=== PATIENT | female | born 1955 | race Caucasian/White ===

== ENCOUNTER → 2020-06-05 13:16 | Outpatient (BNVA) | payer OTHER, SELFPAY | PROVIDERS: Family Provider Nurse Practitioner Family; PCP Nurse Practitioner Family; Visit Provider Nurse Practitioner Family | DX: E55.9 Vitamin D deficiency, unspecified (principal); E78.5 Hyperlipidemia, unspecified; R73.9 Hyperglycemia, unspecified; Z12.31 Encounter for screening mammogram for malignant neoplasm of breast | CPT/HCPCS: 80053; 80061; 82306; 83036; 85025 ==

== ENCOUNTER 2020-06-11 07:24 | Outpatient (CLI) | payer OTHER, SELFPAY ==
--- NOTE | 2020-06-11 07:30 | MM_ITS ---
WS: [id number] BILATERAL DIGITAL SCREENING MAMMOGRAPHY WITH CAD CLINICAL INFORMATION: screening mammo HISTORY: Screening mammogram. No current complaints. COMPARISON: [id number] TECHNIQUE: Bilateral CC and MLO views. FINDINGS: The breasts are composed of heterogeneous fibroglandular density tissue, which can limit the detectio n of small underlying mass lesions. No suspicious mass, asymmetry, calcifications, or architectural d istortion. No evidence of malignancy. MM/[place] [id number] IMPRESSION: BI-RADS: 1-Negative FOLLOW UP: 1 Year Follow-up Recommend return to annual screening mammography.
== END 2020-06-11 07:25 | disposition home or self-care (01) ==
PROVIDERS: PCP Nurse Practitioner Family; Visit Provider Nurse Practitioner Family
DX: Z12.31 Encounter for screening mammogram for malignant neoplasm of breast (principal)
CPT/HCPCS: 77067

== ENCOUNTER → 2020-06-27 13:24 | Outpatient (BNVA) | payer OTHER, SELFPAY | PROVIDERS: PCP Nurse Practitioner Family; Visit Provider Nurse Practitioner Family | DX: R26.81 Unsteadiness on feet (principal); E55.9 Vitamin D deficiency, unspecified; I10 Essential (primary) hypertension; R73.9 Hyperglycemia, unspecified; F41.9 Anxiety disorder, unspecified; F32.9 Major depressive disorder, single episode, unspecified; E78.5 Hyperlipidemia, unspecified | CPT/HCPCS: 80053; 82607; 84443 ==

== ENCOUNTER 2020-07-17 14:17 | Outpatient (CLI) | payer OTHER, SELFPAY ==
--- NOTE | 2020-07-17 14:15 | USCV_ITS ---
Mary Jane Pierre Age: 65 Gender: F : 1955 Exam Date: 07/17/2020 14:24 Ordering Phys: Tiffany Jordan PRINCIPAL BIOINFORMATICS SPECIALIST Technologist: Bhargavi Ness Exam Location: [facility] – [place] Indication: Unsteady gait, vision changes Risk Factors: None Previous Vascular Surgery: None Right Brachial BP: / Left Brachial BP: / Right Left Velocity (cm/s) Spectral Plaque Velocity (cm/s) Spectral Plaque Syst/Diast Broadening Syst/Diast Broadening 105.80/20.90 Prox CCA 97.20 / 20.20 76.10/ 19.70 Mid CCA 95.10 / 22.30 76.10/ 16.50 Distal CCA 101.20/ 21.30 64.30/ 22.00 Prox ICA 72.00 / 18.90 96.20/ 35.40 Mid ICA 71.80 / 22.80 97.20/ 35.40 Distal ICA 93.00 / 33.40 155.20 ECA 88.10 1.28 ICA/CCA 0.98 Antegrade Vertebral Antegrade 32.20/ 7.80 cm/s 57.70/ 13.60 cm/s Bi Subclavian Tri 94.10 158.0 0 CONCLUSIONS Right ICA stenosis <50%. Left ICA stenosis <50%. Normal antegrade Doppler flow noted in the right vertebral artery. Normal antegrade Doppler flow noted in the left vertebral artery. Scott Kitchen MD (Electronically Signed) Final Date: 17 July 2020 16:45 S
== END 2020-07-17 14:18 | disposition home or self-care (01) ==
LOC: US 14:22
PROVIDERS: PCP Nurse Practitioner Family; Visit Provider Nurse Practitioner Family
DX: R26.81 Unsteadiness on feet (principal); H53.8 Other visual disturbances; I65.23 Occlusion and stenosis of bilateral carotid arteries
CPT/HCPCS: 80048; 93880

== ENCOUNTER 2020-07-21 08:10 | Outpatient (CLI) | payer OTHER, SELFPAY ==
--- NOTE | 2020-07-21 08:00 | MR_ITS ---
WS: [id number] MRI BRAIN WITH AND WITHOUT CONTRAST HISTORY: unsteady gait; vision changes; no head injury COMPARISON: None available. TECHNIQUE: Multiplanar imaging performed through the brain with Prohance 14 ml's IV. No acute infarcts or hemorrhage. There are numerous T2 and FLAIR signal hyperintensities throughout t he white matter. There is involvement of the corpus callosum and the callosal septal interface. Hyper densities are perpendicular to the callosal septal junction. These are ovoid and linear hyperintensit ies. There are additional numerous subcortical white matter lesions extending above and below the lev el of the ventricles. Visualized brainstem and cerebellum are negative. There are several T1 hypointe nse lesions along the corpus callosum which are typically seen with greater prior destruction. No susceptibility artifacts or prior lacunar infarcts. Normal size ventricles. Clivus and pituitary gland are normal. Visualized posterior fossa and brainstem are also normal. Optic nerves are symmetric bilaterally. There is very mild buckling of the optic nerves but no abnorm al enhancement or abnormal signal. No flattening of the sclera or optic nerve head protrusion. Questionable very mild smudgy-like enhancement seen on the axial T1 sequences above the LEFT lateral ventricle. There are 2 areas of very minimal enhancement. One of these does correspond to a demyelina ting plaque. The other may be vascular. Dural venous sinuses are normal. Paranasal sinuses: Well aerated with no significant disease. Mastoid air cells: Normal. Calvarium and scalp: Normal. MR/MR head wo/w con [id number] IMPRESSION: 1. Findings highly suspicious for demyelinating disease such as multiple scler osis. Differential would include Lyme disease. 2. Indeterminate for active demyelinating plaque in the LEFT centrum semiovale ovale. There is a vague area of mild enhancement. 3. Mild buckling of the optic nerves but no evidence of this examination of op tic neuritis. Consider further evaluation by ophthalmology.
== END 2020-07-21 08:11 | disposition home or self-care (01) ==
LOC: RADSHAW 08:13
PROVIDERS: PCP Nurse Practitioner Family; Visit Provider Nurse Practitioner Family
DX: R26.81 Unsteadiness on feet (principal); H53.9 Unspecified visual disturbance
CPT/HCPCS: 70553; A9579

== ENCOUNTER → 2020-07-30 08:05 | Outpatient (BNVA) | payer OTHER, SELFPAY | PROVIDERS: PCP Nurse Practitioner Family; Referring Provider Nurse Practitioner Family; Visit Provider Licensed Practical Nurse | DX: G35 Multiple sclerosis (principal) | CPT/HCPCS: 85651; 86140; 99204 ==

== ENCOUNTER → 2020-08-07 14:44 | Outpatient (BNVA) | payer OTHER, SELFPAY | PROVIDERS: PCP Nurse Practitioner Family; Visit Provider Licensed Practical Nurse | DX: G35 Multiple sclerosis (principal); I10 Essential (primary) hypertension | CPT/HCPCS: 86038; 86431 ==

== ENCOUNTER 2020-08-18 09:48 | Outpatient (CLI) | payer OTHER, SELFPAY ==
--- NOTE | 2020-08-18 10:15 | MR_ITS ---
WS: [id number] MRI CERVICAL SPINE NONCONTRAST TECHNIQUE: Sagittal T1, T2 and STIR imaging. Axial T2, gradient, and fiesta imaging. CLINICAL INFORMATION: MS COMPARISON: None. FINDINGS: Straightening of the normal cervical lordosis. Disc bulging worse at C5-C6. Chronic appearing demyeli nating lesions at the cervical medullary junction and C1-C2 level. No enhancing lesions to indicate a ctive disease. No significant cord atrophy. C2-C3: Normal. C3-C4: Tiny central disc osteophyte protrusion. Mild facet arthropathy. Spinal canal and foramen are patent. C4-C5: Disc osteophyte complex with endplate ridging. Spinal canal and foramen are patent. Moderate f acet arthropathy. C5-C6: Disc osteophytic complex with endplate ridging. Slight effacement of ventral thecal sac. Mild facet arthropathy. Mild left and no significant right foraminal narrowing. C6-C7: Normal. C7-T1: Normal. Visualized brain stem structures: Normal. Prevertebral soft tissues: Normal. MR/MR cervical spine wo/w [id number] IMPRESSION: 1. Straightening of the normal cervical lordosis. 2. Chronic demyelinating lesions at the cervicomedullary junction and C1-C2 ar ticulation. No enhancing lesions to indicate active disease. 3. No significant cord atrophy. 4. Mild central canal stenosis C5-C6 due to disc osteophyte complex with a sma ll shallow central protrusion.
== END 2020-08-18 09:49 | disposition home or self-care (01) ==
PROVIDERS: Family Provider Nurse Practitioner Family; PCP Nurse Practitioner Family; Visit Provider Licensed Practical Nurse
DX: G35 Multiple sclerosis (principal); M48.02 Spinal stenosis, cervical region; M25.78 Osteophyte, vertebrae; M50.222 Other cervical disc displacement at C5-C6 level
CPT/HCPCS: 72156; A9579

== ENCOUNTER → 2020-08-20 08:03 | Outpatient (BNVA) | payer OTHER, SELFPAY | PROVIDERS: Family Provider Nurse Practitioner Family; PCP Nurse Practitioner Family; Visit Provider Licensed Practical Nurse | DX: G35 Multiple sclerosis (principal); H53.9 Unspecified visual disturbance; R26.81 Unsteadiness on feet | CPT/HCPCS: 99213 ==

== ENCOUNTER → 2020-08-22 09:45 | Outpatient (BNVA) | payer OTHER, SELFPAY | PROVIDERS: Family Provider Nurse Practitioner Family; PCP Nurse Practitioner Family; Visit Provider Specialist | DX: H46.9 Unspecified optic neuritis (principal) | CPT/HCPCS: 83516 ==

== ENCOUNTER → 2020-08-28 15:27 | Outpatient (BNVA) | payer OTHER, SELFPAY | PROVIDERS: Family Provider Nurse Practitioner Family; PCP Nurse Practitioner Family; Visit Provider Specialist | DX: G35 Multiple sclerosis (principal) | CPT/HCPCS: 99215 ==

== ENCOUNTER → 2020-10-20 16:08 | Outpatient (BNVA) | payer OTHER, SELFPAY | PROVIDERS: Family Provider Nurse Practitioner Family; PCP Nurse Practitioner Family; Visit Provider Specialist | DX: G35 Multiple sclerosis (principal) | CPT/HCPCS: 84460 ==

== ENCOUNTER → 2020-12-04 15:16 | Outpatient (BNVA) | payer OTHER, SELFPAY | PROVIDERS: Family Provider Nurse Practitioner Family; PCP Nurse Practitioner Family; Visit Provider Nurse Practitioner Family | DX: I10 Essential (primary) hypertension (principal); E78.5 Hyperlipidemia, unspecified; R30.0 Dysuria; E55.9 Vitamin D deficiency, unspecified; R73.9 Hyperglycemia, unspecified | CPT/HCPCS: 80053; 80061; 81003; 82306; 83036; 85025; 87086 ==

== ENCOUNTER → 2020-12-08 15:08 | Outpatient (BNVA) | payer OTHER, SELFPAY | PROVIDERS: Family Provider Nurse Practitioner Family; PCP Nurse Practitioner Family; Visit Provider Specialist | DX: G35 Multiple sclerosis (principal) | CPT/HCPCS: 99213 ==

== ENCOUNTER 2021-05-08 08:22 | Outpatient (CLI) | payer OTHER, SELFPAY ==
--- NOTE | 2021-05-08 08:45 | MR_ITS ---
WS: [id number] MRI HEAD WITH CONTRAST TECHNIQUE: Sagittal T1, T2 axial, T2 axial FLAIR, axial susceptibility weighted imaging, axial diffus ion weighted images, and coronal T2 images were obtained. Pre and post-T1 axial and post T1 coronal i mages. ADC and FSPGR images. CLINICAL INFORMATION: G35 - Multiple sclerosis COMPARISON: MRI July 21, 2020 FINDINGS: No evidence of restricted diffusion to suggest acute ischemia. Ventricular system and basal cisterns are patent. Moderate patchy supratentorial white matter changes with pericallosal lesions consistent with history of demyelinating disease. The number and distribution of lesions is not significantly ch anged compared to previous. No evidence of disease progression. No significant corpus callosal atrophy. No enhancing lesions to indicate active disease. Mild T1 hypo intense lesion load. No hemosiderin on susceptibly weighted images. Mild parenchymal volume loss. Normal optic chiasm and pituitary infundibulum. Normal cavernous sinuses. Normal rectus muscles. Norm al dural venous sinuses. MR/MR head wo/w con [id number] IMPRESSION: 1. Moderate patchy supratentorial white matter changes consistent with history of demyelinating disease. 2. No evidence of disease progression. 3. No enhancing lesions to indicate active disease. 4. Mild parenchymal volume loss. No significant atrophy of the corpus callosum . 5. Mild T1 hypointense lesion load. 6. No other significant changes from previous.
--- NOTE | 2021-05-08 09:30 | MR_ITS ---
WS: [id number] MRI CERVICAL SPINE NONCONTRAST AND CONTRAST TECHNIQUE: Sagittal T1, T2 and STIR imaging. Axial T2, gradient, and fiesta imaging. Post gadolinium imaging was obtained. CLINICAL INFORMATION: G35 - Multiple sclerosis COMPARISON: August 18, 2020 FINDINGS: Straightening of the normal cervical lordosis. No high-grade central canal narrowing. Mild disc bulgi ng C5-6. Chronic demyelinating plaques at the craniocervical junction and within the cervical cord co nsistent with history of demyelinating disease. No enhancing lesions to indicate active disease. No s ignificant cord atrophy. C2-C3: Normal. C3-C4: Tiny central disc osteophyte protrusion. Mild facet arthropathy. Spinal canal and foramen are patent. C4-C5: Disc osteophyte complex with endplate ridging. Spinal canal and foramen are patent. Mo derate facet arthropathy. C5-C6: Disc osteophytic complex with endplate ridging. Slight effacement of ventral thecal sac. Mild central canal stenosis. Mild facet arthropathy. Mild left and no significant right foraminal narrowin g. C6-C7: Normal. C7-T1: Normal. Visualized brain stem structures: Normal. Prevertebral soft tissues: Normal. MR/MR cervical spine wo/w [id number] IMPRESSION: 1. Stable chronic demyelinating plaques within the cervical cord and cervicome dullary junction. No evidence of disease progression. 2. No enhancing lesions to indicate active disease. 3. No significant cord atrophy. 4. Mild central canal stenosis C5-6 due to disc osteophyte complex with small central protrusion unchanged.
== END 2021-05-08 08:23 | disposition home or self-care (01) ==
LOC: RADSHAW 08:23
PROVIDERS: Family Provider Nurse Practitioner Family; PCP Nurse Practitioner Family; Visit Provider Specialist
DX: G35 Multiple sclerosis (principal); M48.02 Spinal stenosis, cervical region
CPT/HCPCS: 70553; 72156; A9579

== ENCOUNTER → 2021-05-12 08:06 | Outpatient (BNVA) | payer OTHER, SELFPAY | PROVIDERS: Family Provider Nurse Practitioner Family; PCP Nurse Practitioner Family; Visit Provider Specialist | DX: G35 Multiple sclerosis (principal) | CPT/HCPCS: 99215 ==

== ENCOUNTER → 2021-06-19 15:59 | Outpatient (BNVA) | payer OTHER, SELFPAY | PROVIDERS: Family Provider Nurse Practitioner Family; PCP Nurse Practitioner Family; Visit Provider Nurse Practitioner Family | DX: R30.0 Dysuria (principal); I10 Essential (primary) hypertension; R73.9 Hyperglycemia, unspecified; E55.9 Vitamin D deficiency, unspecified; N30.01 Acute cystitis with hematuria; G35 Multiple sclerosis; F41.9 Anxiety disorder, unspecified; F32.9 Major depressive disorder, single episode, unspecified; E78.5 Hyperlipidemia, unspecified; Z68.24 Body mass index [BMI] 24.0-24.9, adult | CPT/HCPCS: 81000 ==

== ENCOUNTER → 2021-07-01 08:16 | Outpatient (BNVA) | payer OTHER, SELFPAY | PROVIDERS: Family Provider Nurse Practitioner Family; PCP Nurse Practitioner Family; Visit Provider Nurse Practitioner Family | DX: I10 Essential (primary) hypertension (principal); R73.9 Hyperglycemia, unspecified; E55.9 Vitamin D deficiency, unspecified | CPT/HCPCS: 80053; 80061; 82306; 83036; 84443; 85025 ==

== ENCOUNTER → 2021-12-30 15:57 | Outpatient (BNVA) | payer OTHER, SELFPAY | PROVIDERS: Family Provider Nurse Practitioner Family; PCP Nurse Practitioner Family; Visit Provider Nurse Practitioner Family | DX: I10 Essential (primary) hypertension (principal); R73.9 Hyperglycemia, unspecified; E55.9 Vitamin D deficiency, unspecified; E78.5 Hyperlipidemia, unspecified; G35 Multiple sclerosis | CPT/HCPCS: 80053; 80061; 82306; 83036; 84443; 85025 ==

== ENCOUNTER → 2022-01-20 18:00 | Outpatient (BNVA) | payer MEDICARE, OTHER, SELFPAY | PROVIDERS: Family Provider Nurse Practitioner Family; PCP Nurse Practitioner Family; Visit Provider Nurse Practitioner Family | DX: E87.6 Hypokalemia (principal) | CPT/HCPCS: 80048 ==

== ENCOUNTER → 2022-09-27 14:12 | Outpatient (BNVA) | payer MEDICARE, OTHER, SELFPAY | PROVIDERS: Family Provider Nurse Practitioner Family; PCP Nurse Practitioner Family; Visit Provider Nurse Practitioner Family | DX: J02.9 Acute pharyngitis, unspecified (principal); Z20.818 Contact with and (suspected) exposure to other bacterial communicable diseases; Z12.11 Encounter for screening for malignant neoplasm of colon | CPT/HCPCS: 87071; 87880 ==

== ENCOUNTER → 2022-10-07 09:39 | Outpatient (BNVA) | payer MEDICARE, OTHER, SELFPAY | PROVIDERS: Family Provider Nurse Practitioner Family; PCP Nurse Practitioner Family; Visit Provider Surgery | DX: Z12.11 Encounter for screening for malignant neoplasm of colon (principal) | CPT/HCPCS: 99024 ==

== ENCOUNTER → 2022-11-10 09:05 | Outpatient (BNVA) | payer MEDICARE, OTHER, SELFPAY | PROVIDERS: Family Provider Nurse Practitioner Family; PCP Nurse Practitioner Family; Visit Provider Specialist | DX: G35 Multiple sclerosis (principal); F41.9 Anxiety disorder, unspecified; F32.9 Major depressive disorder, single episode, unspecified | CPT/HCPCS: 99214 ==

== ENCOUNTER 2022-11-24 08:51 | Day surgery (SDC) | payer MEDICARE, OTHER, SELFPAY ==
[2022-11-19 13:32] VITALS: BMI 24.3
[2022-11-24 09:15] VITALS: BP 148/105; PULSE 93; RESP 18; TEMP 36.1; O2SAT 98
[2022-11-24] MEDS: sodium chloride 0.9% 1,000 ML 30 ML IV (09:19)
--- NOTE | 2022-11-24 09:52 | ANES.PREANE2 ---
Pre-Anesthetic Assessment Height/Weight: Height 1.7 m Weight 70.307 kg Temp Pulse Resp BP Pulse Ox O2 Del Method 97.0 F L 93 18 148/105 98 11/24/22 09:15 11/24/22 09:15 11/24/22 09:15 11/24/22 09:15 11/24/22 09:15 11/24/22 09:15 Preop Diagnosis: screening Operation Date: 11/24/22 10:30 Proposed Procedures p Colonoscopy 97323/Z12.11(Not Applicable) - Olayinka Brenner DO Familial anesthetic complications: none Was Beta Stuart taken within 24 hours: N/A Was Clonidine taken within 24 hours: N/A Last intake: Intake Last Liquid Date 11/23/22 Last Liquid Time 22:00 Last Solid Date 11/22/22 Last Solid Time 18:00 Last Intake: 22:30 Social No alcohol and No tobacco Exam alert, oriented x 3, clear to auscultation bilaterally and regular rate & rhythm Airway Submandibular: within normal limits Cervical ROM: within normal limits Mallampati: Class II Dentition: full Pulmonary Cough (cold 2weeks ago) CV/HEM Hypertension None reported Hepatic None reported GI None reported Metabolic None reported Musc/skel None reported MS Neuropsych Anxiety and Depression Anesthetic Plan ASA status: 2 Anesthesia: MAC Medications/Allergies Home Medications Medication Instructions Recorded Confirmed Last Taken Type aspirin 81 mg tablet,delayed 81 mg PO DAILY 07/30/20 11/24/22 11/19/22 History release (Adult Low Dose Aspirin) multivitamin,[id number] 1 tab PO DAILY 07/30/20 11/24/22 11/19/22 History (Complete Multivitamin tablet) cholecalciferol (vitamin D3) 25 50 mcg PO DAILY 12/04/20 11/24/22 11/19/22 History mcg (1,000 unit) tablet albuterol sulfate 90 mcg/actuation 2 puff inhalation Q6H PRN 08/04/22 11/24/22 11/19/22 Rx aerosol inhaler (Ventolin HFA) shortness of breath or wheezing #8.5 grams teriflunomide 14 mg tablet 14 mg PO DAILY 90 days #90 tabs 11/10/22 11/24/22 11/18/22 Rx (Aubagio) citalopram 40 mg tablet 40 mg PO DAILY 11/19/22 11/24/22 11/23/22 History hydrochlorothiazide 25 mg tablet 25 mg PO DAILY 11/19/22 11/24/22 11/23/22 History losartan 25 mg tablet 25 mg PO DAILY 11/19/22 11/24/22 11/23/22 History pravastatin 80 mg tablet 80 mg PO DAILY 11/19/22 11/24/22 11/22/22 History Allergies Allergy/AdvReac Type Severity Reaction Status Date / Time furosemide [From Lasix] Allergy Unknown Verified 11/24/22 09:11 lisinopril Allergy ADR-Cough Verified 11/24/22 09:11 Current Medications Generic Name Dose Route Start Last Admin Trade Name Freq PRN Reason Stop Dose Admin Sodium Chloride 1,000 mls @ 30 mls/hr 11/24/22 09:00 11/24/22 09:19 Sodium Chloride 0.9% IV 11/25/22 08:59 30 mls/hr .Q24H GIULIANA Administration PFSH Anesthesia Medical History Anxiety and depression Dyspareunia in female Hyperlipidemia Hypertension Mixed stress and urge urinary incontinence Multiple sclerosis Unsteady gait Vision changes Surgical History History of cataract surgery August and September 2019 Hx of colonoscopy (~2011) Hx of hysterectomy (~1986) Family History Brother Diabetes Family/Other Hypertension Mother Stroke CAD (coronary artery disease) Grandfather Cancer colon Father CAD (coronary artery disease) Social History Smoking and tobacco status: never smoked Second hand smoke exposure: No Alcohol intake: never Adopted: No Caregiver/support person: Yes Lives independently: Yes Household members: spouse Marital status: service: No Current occupational status: employed Current occupation: [employer] History of recent travel: No Current gender identity: Female Special rebecca needs: No Agree to transfusion: Yes Data Anesthesia Cardiac Studies: No Data to Display
--- NOTE | 2022-11-24 10:04 | PM.HP ---
Providers/Chief Complaint Primary Care Provider: PRESTON Rodriguez Chief Complaint: Z12.11 History of Present Illness Mary Jane Pierre is a 67 year old female who presents for a screening colonoscopy. Last colonoscopy was 10 years ago and was within normal limits. She denies any abdominal pain nausea emesis diarrhea or constipation. She does think that she has a hemorrhoid and had blood in her underwear about a year ago that was bright red. Her paternal grandfather of colon cancer in his 30s. She has had a hysterectomy Review of Systems General: Reports: 10 or more systems reviewed and unremarkable except in HPI and below Medications/Allergies Home Medications Medication Instructions Recorded Confirmed Last Taken Type aspirin 81 mg tablet,delayed 81 mg PO DAILY 07/30/20 11/24/22 11/19/22 History release (Adult Low Dose Aspirin) multivitamin,[id number] 1 tab PO DAILY 07/30/20 11/24/22 11/19/22 History (Complete Multivitamin tablet) cholecalciferol (vitamin D3) 25 50 mcg PO DAILY 12/04/20 11/24/22 11/19/22 History mcg (1,000 unit) tablet albuterol sulfate 90 mcg/actuation 2 puff inhalation Q6H PRN 08/04/22 11/24/22 11/19/22 Rx aerosol inhaler (Ventolin HFA) shortness of breath or wheezing #8.5 grams teriflunomide 14 mg tablet 14 mg PO DAILY 90 days #90 tabs 11/10/22 11/24/22 11/18/22 Rx (Aubagio) citalopram 40 mg tablet 40 mg PO DAILY 11/19/22 11/24/22 11/23/22 History hydrochlorothiazide 25 mg tablet 25 mg PO DAILY 11/19/22 11/24/22 11/23/22 History losartan 25 mg tablet 25 mg PO DAILY 11/19/22 11/24/22 11/23/22 History pravastatin 80 mg tablet 80 mg PO DAILY 11/19/22 11/24/22 11/22/22 History Allergies Allergy/AdvReac Type Severity Reaction Status Date / Time furosemide [From Lasix] Allergy Unknown Verified 11/24/22 09:11 lisinopril Allergy ADR-Cough Verified 11/24/22 09:11 PFSH Acute PFSH: Medical History Anxiety and depression Dyspareunia in female Hyperlipidemia Hypertension Mixed stress and urge urinary incontinence Multiple sclerosis Unsteady gait Vision changes Surgical History History of cataract surgery August and September 2019 Hx of colonoscopy (~2011) Hx of hysterectomy (~1986) Family History Brother Diabetes Family/Other Hypertension Mother Stroke CAD (coronary artery disease) Grandfather Cancer colon Father CAD (coronary artery disease) Social History Smoking and tobacco status: never smoked Second hand smoke exposure: No Alcohol intake: never Adopted: No Caregiver/support person: Yes Lives independently: Yes Household members: spouse Marital status: service: No Current occupational status: employed Current occupation: [employer] History of recent travel: No Current gender identity: Female Special rebecca needs: No Agree to transfusion: Yes Vitals/I&O/Wt Last Vital Signs Temp 97.0 F L 11/24/22 09:15 Pulse 93 11/24/22 09:15 Resp 18 11/24/22 09:15 BP 148/105 11/24/22 09:15 Pulse Ox 98 11/24/22 09:15 O2 Del Method 11/24/22 09:15 Physical Exam Narrative: General : Patient is well developed , no acute distress, oriented x3 Head : Normal cephalic, a-traumatic. Ears : Pinnae and external canal are normal. Hearing is normal. Eyes : PERRLA, Sclera and injection are normal. No conjunctival discharge. Nose : Mucous membranes are without erythema. Throat : buccal mucosa is normal, gums are without significant recession or hypertrophy. Lungs : Equal chest rise bilaterally, no use of accessory muscles, trachea is midline. Cor : Rate and rhythm are normal. Abdomen : Soft, ND, NT, no g/r/m Extremities : No edema, no cyanosis or clubbing, dorsalis pedis pulses are present bilaterally, non-tender to palpation of calves. Upper extremities are normal bilaterally. Back : non-tender to palpation, no CVA tenderness. Neuro : CN II - XII intact, Upper and lower extremities have equal and full strength A&P Assessment and plan (1) Screening for colon cancer: Plan Colonoscopy The risks and benefits of the procedure, including bleeding, infection, intestinal perforation requiring surgery, missed lesion were explained to the patient. The patient is understanding of the risks and wishes to proceed. Attestations Medical Necessity Statement*: Home Coding Level of Care Code Acute Account Support Associate for Chg Fwd Diagnoses Screening for colon cancer Z12.11
[2022-11-24 10:22] VITALS: BP 141/72; PULSE 81; RESP 16; TEMP 36.3; O2SAT 98
[2022-11-24 10:38] VITALS: BP 114/74; PULSE 77; RESP 18; O2SAT 99
--- NOTE | 2022-11-24 17:32 | ANE.PACU2 ---
Inpatient post-anesthesia follow up: Airway intact: Yes Vital signs: Temperature 97.3 F Pulse Rate 77 Respiratory Rate 18 Blood Pressure 114/74 Pulse Oximetry 99 Oxygen Delivery Me thod Room Air Oxygen Flow Rate Fraction of Inspir ed Oxygen Hydration adequate: Yes Nausea and vomiting: No Pain level: 1 Mental status: Baseline
== END 2022-11-24 11:00 | disposition home or self-care (01) ==
PROVIDERS: PCP Nurse Practitioner Family; Visit Provider Surgery
PROC: 0DJD8ZZ Inspection of Lower Intestinal Tract, Via Natural or Artificial Opening Endoscopic (ICD-10-PCS; CPT 45378; principal; 2022-11-24 10:30)
DX: Z12.11 Encounter for screening for malignant neoplasm of colon (principal); Z79.82 Long term (current) use of aspirin; E78.5 Hyperlipidemia, unspecified; I10 Essential (primary) hypertension; K64.8 Other hemorrhoids
CPT/HCPCS: G0121; J2704; J7030

== ENCOUNTER → 2022-12-17 15:35 | Outpatient (BNVA) | payer MEDICARE, OTHER, SELFPAY | PROVIDERS: PCP Nurse Practitioner Family; Visit Provider Nurse Practitioner Family | DX: E55.9 Vitamin D deficiency, unspecified (principal); E78.5 Hyperlipidemia, unspecified; I10 Essential (primary) hypertension | CPT/HCPCS: 80053; 80061; 82306; 84443; 85025 ==

== ENCOUNTER 2023-01-31 07:52 | Day surgery (SDC) | payer MEDICARE, OTHER, SELFPAY ==
[2023-01-28 16:47] VITALS: BMI 24.3
[2023-01-31] VITALS (10 sets, daily range): BP systolic 119–161; BP diastolic 58–97; PULSE 84–94; RESP 12–17; TEMP 36.2–36.6; O2SAT 94–100
--- NOTE | 2023-01-31 08:04 | P.HP_ITS ---
Providers/Chief Complaint Primary Care Provider: PRESTON Rodriguez Chief Complaint: K62.89 History of Present Illness Mary Jane Pierre is a 68 year old female here for excision of an anal mass identified on colonoscopy. Medications/Allergies Home Medications Medication Instructions Recorded Confirmed Last Taken Type aspirin 81 mg tablet,delayed 81 mg PO DAILY 07/30/20 01/28/23 11/19/22 History release (Adult Low Dose Aspirin) multivitamin,[id number]-[id number] 1 tab PO DAILY 07/30/20 01/28/23 11/19/22 History (Complete Multivitamin tablet) cholecalciferol (vitamin D3) 25 50 mcg PO DAILY 12/04/20 01/28/23 11/19/22 History mcg (1,000 unit) tablet teriflunomide 14 mg tablet 14 mg PO DAILY 90 days #90 tabs 11/10/22 01/28/23 11/18/22 Rx (Aubagio) citalopram 40 mg tablet 40 mg PO DAILY 11/19/22 01/28/23 11/23/22 History losartan 25 mg tablet 25 mg PO DAILY 11/19/22 01/28/23 11/23/22 History hydrochlorothiazide 25 mg tablet See Rx Instructions .Route 12/17/22 01/28/23 Unknown Rx .COMPLEX #30 tabs pravastatin 80 mg tablet See Rx Instructions .Route 12/17/22 01/28/23 Unknown Rx .COMPLEX #30 tabs Allergies Allergy/AdvReac Type Severity Reaction Status Date / Time furosemide [From Lasix] Allergy Unknown Verified 11/24/22 09:11 lisinopril Allergy ADR-Cough Verified 11/24/22 09:11 PFSH Acute PFSH: Medical History Anxiety and depression Dyspareunia in female Hyperlipidemia Hypertension Mixed stress and urge urinary incontinence Multiple sclerosis Unsteady gait Vision changes Surgical History History of cataract surgery August and September 2019 Hx of colonoscopy (~2011) Hx of hysterectomy (~1986) Family History Brother Diabetes Family/Other Hypertension Mother Stroke CAD (coronary artery disease) Grandfather Cancer colon Father CAD (coronary artery disease) Social History Smoking and tobacco status: never smoked Second hand smoke exposure: No Alcohol intake: never Adopted: No Caregiver/support person: Yes Lives independently: Yes Household members: spouse Marital status: service: No Current occupational status: employed Current occupation: [employer] History of recent travel: No Current gender identity: Female Special rebecca needs: No Agree to transfusion: Yes A&P Assessment and plan (1) Mass of anus: Plan Excision of anal mass The risks and benefits of the procedure, including but not limited to, bleeding, infection, recurrence, scar, numbness, pain, damage to surrounding structures, incontinence of stool and or flatus, were explained to the patient. They are understanding of the risks and wish to proceed. Attestations Medical Necessity Statement*: Home Coding Level of Care Code Acute Code for Chg Fwd Diagnoses Mass of anus K62.89
[2023-01-31] MEDS: sodium chloride 0.9% 1,000 ML 30 ML IV (08:40)
--- NOTE | 2023-01-31 08:41 | P.ANESASSM_ITS ---
Pre-Anesthetic Assessment Height/Weight: Height 1.7 m Weight 70.307 kg Temp Pulse Resp BP Pulse Ox O2 Del Method 97.8 F 94 17 161/71 96 01/31/23 08:20 01/31/23 08:20 01/31/23 08:20 01/31/23 08:20 01/31/23 08:20 01/31/23 08:20 Preop Diagnosis: Anal mass Operation Date: 01/31/23 09:25 Proposed Procedures p [id number] excision of parianal mass K62.89(Not Applicable) - Olayinka Brenner DO Familial anesthetic complications: none Was Beta Stuart taken within 24 hours: N/A Was Clonidine taken within 24 hours: N/A Last intake: Intake Last Liquid Date 01/30/23 Last Liquid Time 20:00 Last Solid Date 01/30/23 Last Solid Time 20:00 Social No alcohol and No tobacco Exam alert, oriented x 3, clear to auscultation bilaterally and regular rate & rhythm Airway Submandibular: within normal limits Cervical ROM: within normal limits Mallampati: Class II Dentition: full CV/HEM Hypertension Metabolic Hyperlipidemia [facility] [place] Anesthetic Plan ASA status: 2 Anesthesia: General Medications/Allergies Home Medications Medication Instructions Recorded Confirmed Last Taken Type aspirin 81 mg tablet,delayed 81 mg PO DAILY 07/30/20 01/31/23 01/27/23 History release (Adult Low Dose Aspirin) multivitamin,[id number] 1 tab PO DAILY 07/30/20 01/31/23 01/30/23 History (Complete Multivitamin tablet) cholecalciferol (vitamin D3) 25 50 mcg PO DAILY 12/04/20 01/31/23 01/30/23 History mcg (1,000 unit) tablet teriflunomide 14 mg tablet 14 mg PO DAILY 90 days #90 tabs 11/10/22 01/31/23 01/27/23 Rx (Aubagio) citalopram 40 mg tablet 40 mg PO DAILY 11/19/22 01/31/23 01/30/23 History losartan 25 mg tablet 25 mg PO DAILY 11/19/22 01/31/23 01/30/23 History hydrochlorothiazide 25 mg tablet See Rx Instructions .Route 12/17/22 01/31/23 01/30/23 Rx .COMPLEX #30 tabs pravastatin 80 mg tablet See Rx Instructions .Route 12/17/22 01/31/23 01/30/23 Rx .COMPLEX #30 tabs Allergies Allergy/AdvReac Type Severity Reaction Status Date / Time furosemide [From Lasix] Allergy Unknown Verified 11/24/22 09:11 lisinopril Allergy ADR-Cough Verified 11/24/22 09:11 [facility] Anesthesia Medical History Anxiety and depression Dyspareunia in female Hyperlipidemia Hypertension Mixed stress and urge urinary incontinence Multiple sclerosis Unsteady gait Vision changes Surgical History History of cataract surgery August and September 2019 Hx of colonoscopy (~2011) Hx of hysterectomy (~1986) Family History Brother Diabetes Family/Other Hypertension Mother Stroke CAD (coronary artery disease) Grandfather Cancer colon Father CAD (coronary artery disease) Social History Smoking and tobacco status: never smoked Second hand smoke exposure: No Alcohol intake: never Adopted: No Caregiver/support person: Yes Lives independently: Yes Household members: spouse Marital status: service: No Current occupational status: employed Current occupation: [employer] History of recent travel: No Current gender identity: Female Special rebecca needs: No Agree to transfusion: Yes Data Anesthesia Cardiac Studies: No Data to Display
[2023-01-31] MEDS: ceFAZolin 2,000 MG in sodium chloride 0.9% (plus) 50 ML 100 MG IV (08:48)
[2023-01-31] MEDS: lidocaine-epi 2% 20 mL INJ INJECTION (09:17)
[2023-01-31 09:25] LABS: Anion Gap 16.7 (5-19); Blood Urea Nitrogen 11 mg/dL (8-23); Carbon Dioxide 28 mmol/L (22-29); Chloride 102 mmol/L (98-107); Creatinine Clr Calc Pharmacy 71.0713; Glomerular Filtration Rate 123.4 mL/min (90-130); Glucose 112 mg/dL (65-115); Osmolality Calculated 296 mOsm/kg (285-295); Potassium 3.7 mmol/L (3.5-5.1); Sodium 143 mmol/L (136-145)
--- NOTE | 2023-01-31 09:44 | P.OP_ITS ---
Operative Report Date of procedure: January 31, 2023 Pre-op diagnosis: Preop Diagnosis Anal mass Post-op diagnosis: same Procedure done: Excision of anal mass Implants: None Specimens removed/disposition: Subcutaneous mass of anus Surgeon: Dr. Olayinka Brenner, Anesthesia: General Estimated blood loss (mL): 2 Complications: None apparent Brief History: This a very pleasant 68-year-old female who was found to have a mass on her anus that is most consistent with an epidermoid cyst. Excision was indicated. The risks and benefits were explained and documented. Procedure: The area was inspected prepped and draped in the usual sterile fashion. 2% lidocaine with epinephrine was used to anesthetize the area around the lesion w hich measured 2.5 centimeters in greatest diameter. A 15 blade scalpel then used to make an elliptical excision measuring 3 centimeters in length. Incision was carried down to subcutaneous tissue and the specimen was passed off. 3-0 Vicryl was used to approximate the dermis, and 4-0 Monocryl was use to close the skin in a running subcuticular fashion. Hemostasis was noted. Skin glue was used. Patient tolerated the procedure well.
--- NOTE | 2023-01-31 16:58 | ANE.PACU2 ---
Inpatient post-anesthesia follow up: Airway intact: Yes Vital signs: Temperature 97.1 F Pulse Rate 87 Respiratory Rate 16 Blood Pressure 135/88 Pulse Oximetry 95 Oxygen Delivery Me thod Room Air Oxygen Flow Rate 6 Fraction of Inspir ed Oxygen Hydration adequate: Yes Nausea and vomiting: No Pain level: 2 Mental status: Baseline
== END 2023-01-31 11:25 | disposition home or self-care (01) ==
PROVIDERS: Anesthesiology; PCP Nurse Practitioner Family; Visit Provider Surgery
PROC: (CPT 46040; principal; 2023-01-31 09:15)
DX: K62.89 Other specified diseases of anus and rectum (principal); I10 Essential (primary) hypertension; E78.5 Hyperlipidemia, unspecified; Z79.82 Long term (current) use of aspirin
CPT/HCPCS: 45171; 36415; 80048; 88309; C9290; J0690; J1100; J2370; J2405; J2704; J3010; J3490; J3535; J7030

== ENCOUNTER → 2023-02-15 09:44 | Outpatient (BNVA) | payer MEDICARE, OTHER, SELFPAY | PROVIDERS: PCP Nurse Practitioner Family; Visit Provider Surgery | DX: L72.0 Epidermal cyst (principal) | CPT/HCPCS: 99213 ==

== ENCOUNTER → 2023-04-28 10:11 | Outpatient (BNVA) | payer MEDICARE, OTHER, SELFPAY | PROVIDERS: PCP Nurse Practitioner Family; Visit Provider Nurse Practitioner Family | DX: Z12.31 Encounter for screening mammogram for malignant neoplasm of breast (principal); M79.672 Pain in left foot | CPT/HCPCS: 73630 ==

== ENCOUNTER → 2023-05-02 14:30 | Outpatient (BNVA) | payer MEDICARE, OTHER, SELFPAY | PROVIDERS: PCP Nurse Practitioner Family; Visit Provider Podiatrist Foot & Ankle Surgery | DX: S93.692A Other sprain of left foot, initial encounter (principal); S93.622A Sprain of tarsometatarsal ligament of left foot, initial encounter; W23.0XXA Caught, crushed, jammed, or pinched between moving objects, initial encounter; Z46.89 Encounter for fitting and adjustment of other specified devices | CPT/HCPCS: 73630; 99204; L4361 ==

== ENCOUNTER 2023-05-03 10:18 | Outpatient (CLI) | payer MEDICARE, OTHER, SELFPAY | END 2023-05-03 10:19 | disposition home or self-care (01) | LOC: SPT 10:20 | PROVIDERS: PCP Nurse Practitioner Family; Visit Provider Podiatrist Foot & Ankle Surgery | DX: Z46.89 Encounter for fitting and adjustment of other specified devices (principal); M79.672 Pain in left foot; S93.692D Other sprain of left foot, subsequent encounter; X58.XXXD Exposure to other specified factors, subsequent encounter | CPT/HCPCS: L4361 ==

== ENCOUNTER 2023-05-13 08:42 | Outpatient (CLI) | payer MEDICARE, OTHER, SELFPAY ==
--- NOTE | 2023-05-13 08:57 | MM_ITS ---
WS: [id number] SCREENING DIGITAL TOMOSYNTHESIS MAMMOGRAM WITH CAD HISTORY: Z12.31 - Encounter for screening mammogram for malignant ... COMPARISON: 06/11/2020 Bilateral CC and MLO with tomosynthesis views submitted. Synthetic mammography reviewed. Computer aid ed detection analyzed. Breast composition: The breasts are heterogeneously dense, which may obscure small masses. No suspici ous masses, microcalcifications or architectural distortion. MM/[place] [id number] IMPRESSION: BI-RADS: 1-Negative FOLLOW UP: 1 Year Follow-up
== END 2023-05-13 08:43 | disposition home or self-care (01) ==
PROVIDERS: PCP Nurse Practitioner Family; Visit Provider Nurse Practitioner Family
DX: Z12.31 Encounter for screening mammogram for malignant neoplasm of breast (principal)
CPT/HCPCS: 77063; 77067

== ENCOUNTER → 2023-05-16 13:31 | Outpatient (BNVA) | payer MEDICARE, OTHER, SELFPAY | PROVIDERS: PCP Nurse Practitioner Family; Visit Provider Podiatrist Foot & Ankle Surgery | DX: S93.622A Sprain of tarsometatarsal ligament of left foot, initial encounter (principal); W23.0XXA Caught, crushed, jammed, or pinched between moving objects, initial encounter | CPT/HCPCS: 99213 ==

== ENCOUNTER → 2023-07-06 18:15 | Outpatient (BNVA) | payer MEDICARE, OTHER, SELFPAY | PROVIDERS: PCP Nurse Practitioner Family; Visit Provider Nurse Practitioner Family | DX: I10 Essential (primary) hypertension (principal); I49.9 Cardiac arrhythmia, unspecified; I49.8 Other specified cardiac arrhythmias; E55.9 Vitamin D deficiency, unspecified; R73.9 Hyperglycemia, unspecified; G35 Multiple sclerosis | CPT/HCPCS: 80053; 82306; 82607; 83036; 83735; 84443; 85025 ==

== ENCOUNTER → 2023-07-15 10:34 | Outpatient (BNVA) | payer MEDICARE, OTHER, SELFPAY | PROVIDERS: PCP Nurse Practitioner Family; Visit Provider Nurse Practitioner Family | DX: N39.0 Urinary tract infection, site not specified (principal) | CPT/HCPCS: 81003 ==

== ENCOUNTER → 2023-08-01 11:24 | Outpatient (BNVA) | payer MEDICARE, OTHER, SELFPAY | PROVIDERS: PCP Nurse Practitioner Family; Visit Provider Nurse Practitioner Family | DX: E87.6 Hypokalemia (principal) | CPT/HCPCS: 80048 ==

== ENCOUNTER → 2023-08-04 14:52 | Outpatient (BNVA) | payer MEDICARE, OTHER, SELFPAY | PROVIDERS: PCP Nurse Practitioner Family; Visit Provider Internal Medicine | DX: R07.9 Chest pain, unspecified (principal); I10 Essential (primary) hypertension; E78.5 Hyperlipidemia, unspecified; R00.2 Palpitations | CPT/HCPCS: 93005; 99214 ==

== ENCOUNTER 2023-08-18 07:31 | Outpatient (CLI) | payer MEDICARE, OTHER, SELFPAY ==
--- NOTE | 2023-08-18 08:00 | USCV_ITS ---
Mary Jane Pierre Age: 68 Gender: F : 1955 Exam Date: 08/18/2023 07:48 Ordering Phys: Pete Jacobo M.D ([email or web address]) Technologist: TRISTA [place]am [place] [facility] [place]ication: CHEST PAIN/SHORTNESS OF BREATH BP: 166 / 90 HR: 71 Rhythm: Sinus Technical Quality: Adequate MEASUREMENTS (Male / Female) Normal Values 2D ECHO LVOT Diameter 2.0 cm LV Ejection Fraction MOD 2C 67.7 % LV Ejection Fraction 2C AL 70.2 % LA Diameter 3.6 cm LA Width 3.3 cm LA Height 4.1 cm RA Width 3.0 cm RA Height 4.0 cm Aorta at Sinotubular Diameter 1.9 cm IVC Diameter 1.4 cm M-MODE Aortic Annulus Diameter 2.6 cm LA Ao Ratio MM 1.4 MV E Point Septal Separation 0.3 cm DOPPLER AV Peak Velocity 116.0 cm/s LVOT Peak Velocity 104.0 cm/s AV Area Cont Eq vti 2.6 cm squared AV Area Cont Eq pk 2.9 cm squared MV Peak Velocity 88.0 cm/s MV Area PHT 4.5 cm squared Mitral E to A Ratio 0.9 MV E' Velocity 50.0 cm/s Mitral E to MV E' Ratio 7.8 Mitral E to LV E' Lateral Ratio 6.6 Mitral E to LV E' Septal Ratio 9.7 TR Peak Velocity 258.5 cm/s TR Peak Gradient 26.7 mmHg TR Mean Velocity 215.0 cm/s TR Mean Gradient 19.1 mmHg TR Velocity Time Integral 78.8 cm TV Peak E Velocity 59.0 cm/s Right Atrial Pressure 3.0 mmHg Pulmonary Artery Systolic Pressu 29.7 mmHg PV Peak Velocity 89.0 cm/s RV Acceleration Time 0.2 s RV Ejection Time 0.3 s RV AcT/ET 0.5 FINDINGS Left Ventricle Left ventricle is normal in size. LV systolic function is normal with EF of 55 to 60%. No regional wall motion abnormalities are seen. Right Ventricle Normal in size and function Right Atrium Normal in size Left Atrium Normal in size Mitral Valve Structurally normal mitral valve. Mild mitral regurgitation Aortic Valve Structurally normal aortic valve. No significant stenosis or regurgitation. Tricuspid Valve Mild tricuspid regurgitation. Pulmonary artery systolic pressure is normal. Pulmonic Valve Not well-visualized Pericardium Normal Aorta Normal in size IVC Appears to be normal CONCLUSIONS LV systolic function is normal with EF 55 to 60%. Mild mitral regurgitation Mild tricuspid regurgitation No comparison studies are available. Pete Jacobo MD (Electronically Signed) Final Date: 21 August 2023 21:36 S
== END 2023-08-18 07:32 | disposition home or self-care (01) ==
PROVIDERS: PCP Nurse Practitioner Family; Visit Provider Internal Medicine
DX: R07.9 Chest pain, unspecified (principal); I34.0 Nonrheumatic mitral (valve) insufficiency; I07.1 Rheumatic tricuspid insufficiency
CPT/HCPCS: 93306

== ENCOUNTER → 2023-10-10 16:47 | Outpatient (BNVA) | payer MEDICARE, OTHER, SELFPAY | PROVIDERS: PCP Nurse Practitioner Family; Visit Provider Family Medicine | DX: N39.0 Urinary tract infection, site not specified (principal) | CPT/HCPCS: 81003; 87077; 87086; 87184 ==

== ENCOUNTER → 2023-11-03 14:05 | Outpatient (BNVA) | payer MEDICARE, OTHER, SELFPAY | PROVIDERS: PCP Nurse Practitioner Family; Visit Provider Internal Medicine | DX: I10 Essential (primary) hypertension (principal); E78.5 Hyperlipidemia, unspecified; R00.2 Palpitations | CPT/HCPCS: 99214 ==

== ENCOUNTER → 2023-11-07 10:34 | Outpatient (BNVA) | payer MEDICARE, OTHER, SELFPAY | PROVIDERS: PCP Nurse Practitioner Family; Visit Provider Psychiatry & Neurology Neurology | DX: G37.9 Demyelinating disease of central nervous system, unspecified (principal); G62.9 Polyneuropathy, unspecified; R68.89 Other general symptoms and signs; R29.818 Other symptoms and signs involving the nervous system; E55.9 Vitamin D deficiency, unspecified; E78.5 Hyperlipidemia, unspecified; G35 Multiple sclerosis; I10 Essential (primary) hypertension; R26.81 Unsteadiness on feet | CPT/HCPCS: 36415; 82306; 82607; 82746; 83735; 83921; 84155; 84165; 84439; 84443; 84481; 86334; 86592; 86617; 86780; 99203 ==

== ENCOUNTER 2024-01-04 15:24 | Outpatient (CLI) | payer MEDICARE, OTHER, SELFPAY ==
[2024-01-04] MEDS: iohexol 350 mg/mL 500 mL Btl (per mL) PO (16:12)
--- NOTE | 2024-01-04 16:30 | CT_ITS ---
WS: [id number] CT ABDOMEN AND PELVIS WITH CONTRAST HISTORY: R10.32 - Left lower quadrant pain TECHNIQUE: Imaging performed of the abdomen and pelvis with IV contrast. Single phase imaging of the abdomen. Coronal and sagittal reformats are submitted. All CT scans at [facility] use at [address] one of these dose optimization techniques: automated exposure control; mA and/or kV adjustment per patient size (includes targeted exams where dose is matched to clinical indication); or iterative re construction. IV CONTRAST: Omnipaque 350; 100 mL IV. Oral contrast: Yes. DLP: 391.53 mGy.cm COMPARISON: None available. Lower thorax: Lung bases are clear. Heart is normal size. Small hiatal hernia. Liver/biliary system: Intense blush area of enhancement in the LEFT lobe measures 1.4 x 0.9 cm. No lo w-attenuation masses. No bile duct dilatation. Gallbladder: Normal. No gallstones or wall thickening. No pericholecystic fluid. Pancreas: Normal size pancreas and pancreatic duct. No adjacent inflammation. Spleen: Numerous granulomata. Adrenal glands: Normal. Right kidney: Normal. Left kidney: Normal. Aorta: Mild atherosclerosis with no aneurysm. Lymphadenopathy: None. Free fluid: None. GI tract: Normally distended stomach. No small bowel obstruction or wall thickening. The appendix is not identified. No evidence for appendicitis. There is diffuse constipation. Partially calcified mass is lobulated in the deep LEFT pelvis abutting the rectum. This mass measures 3.7 x 2.3 cm. This is a pproximately 50% calcified and does extend to about the rectum. There is no obstruction of the rectum . Abdominal wall: Unremarkable abdominal wall. No hernia. Pelvis: No free fluid. There is a large cyst in the RIGHT adnexa measuring 7.1 x 7.6 x 8.0 cm. There are a few areas of very mild wall thickening which need to be further evaluated by ultrasound. The ur inary bladder is normal. Prior hysterectomy. Bones: Unremarkable. IMPRESSION: 1. Large cystic mass with a few areas of wall thickening in the RIGHT adnexa. Cyst measures 7.1 x 7. 6 x 8.0 cm. Favor this is an ovarian cyst but needs to be further evaluated. Recommend follow-up cho sabdominal and transvaginal pelvic ultrasound. 2. Status post hysterectomy. 3. Partially calcified mass in the deep LEFT pelvis abuts the rectum. This mass measures 3.7 x 2.3 c m. Uncertain etiology. Rectal diverticula are uncommon but possible. This could be a very large parti ally calcified diverticulum. The calcification suggests this may likely be benign. With prior surgery could this potentially be retained sponge which is undergone calcification. Consider further evaluat ion. Colonoscopy may provide additional information. Surgical evaluation may be of benefit to confirm diagnosis. The origin may be from the rectal wall. 4. LEFT hepatic hemangioma.
[2024-01-04 16:40] LABS: Blood Urea Nitrogen 10 mg/dL (8-23); Glomerular Filtration Rate 123.4 mL/min (90-130)
[2024-01-04] MEDS: iohexol 350 mg/mL 500 mL Btl (per mL) IV (16:46)
== END 2024-01-04 15:25 | disposition home or self-care (01) ==
LOC: RAD 15:26
PROVIDERS: PCP Nurse Practitioner Family; Visit Provider Nurse Practitioner Family
DX: R10.32 Left lower quadrant pain (principal); N83.8 Other noninflammatory disorders of ovary, fallopian tube and broad ligament; Z90.710 Acquired absence of both cervix and uterus; R19.09 Other intra-abdominal and pelvic swelling, mass and lump; D18.03 Hemangioma of intra-abdominal structures
CPT/HCPCS: 74177; 82565; 84520; Q9967

== ENCOUNTER 2024-01-13 14:27 | Outpatient (CLI) | payer MEDICARE, OTHER, SELFPAY ==
--- NOTE | 2024-01-13 14:45 | US_ITS ---
WS: [id number] US pelv w/transvag [id number] HISTORY: N83.209 - Unspecified ovarian cyst, unspecified side COMPARISON: None available. Prior hysterectomy. Uterus is not identified. Right ovary: 7.9 cm x 7.4 cm x 7.8 cm. There is a large complex cystic mass just to the RIGHT of midl ine with low-level echoes. No increased vascularity. This cystic mass measures 7.5 x 7.4 x 7.0 cm. Es sentially encases the expected location of the ovary. No ovarian tissue is identified. Left ovary: Not visualized. No free fluid in the cul-de-sac. IMPRESSION: 1. Large cystic mass in the RIGHT adnexa measures 7.5 x 7.4 x 7.0 cm. No solid component. There are very few low-level echoes which is probably debris. There is through transmission. Consider further e valuation by [facility] [employer]. Due to its large size surgical removal may be of benefit. There is no solid compone nt. 2. Prior hysterectomy. 3. LEFT ovary not visualized.
== END 2024-01-13 14:28 | disposition home or self-care (01) ==
LOC: RAD 14:27
PROVIDERS: PCP Nurse Practitioner Family; Visit Provider Nurse Practitioner Family
DX: N83.201 Unspecified ovarian cyst, right side (principal)
CPT/HCPCS: 76830; 76856

== ENCOUNTER 2024-01-17 08:04 | Outpatient (CLI) | payer MEDICARE, OTHER, SELFPAY ==
--- NOTE | 2024-01-17 08:45 | MR_ITS ---
WS: [id number] MRI CERVICAL SPINE NONCONTRAST TECHNIQUE: Sagittal T1, T2 and STIR imaging. Axial T2, gradient, and fiesta imaging. CLINICAL INFORMATION: G37.9 - Demyelinating disease of central nervous system, ... COMPARISON: MRI 2020 FINDINGS: Chronic demyelinating plaques at the craniocervical junction and within the cervical cord consistent with history of demyelinating disease. This is unchanged compared to previous. No new lesions. No sig nificant cord atrophy. Straightening of the normal cervical lordosis. No high-grade central canal narrowing. Mild disc bulg ing C5-6 similar to previous. C2-C3: Normal. C3-C4: Tiny central disc osteophyte protrusion. Moderate facet arthropathy. Spinal canal and foramen are patent. C4-C5: Disc osteophyte complex with endplate ridging. Tiny central protrusion. Spinal canal and chris en are patent. Moderate facet arthropathy. C5-C6: Disc osteophytic complex with endplate ridging. Slight effacement of ventral thecal sac. Mild central canal stenosis. Mild facet arthropathy. Mild left and no significant right foraminal narrowi ng. C6-C7: Normal. C7-T1: Normal. Visualized brain stem structures: Normal. Prevertebral soft tissues: Normal. IMPRESSION: 1. No significant changes compared to previous. 2. Stable chronic demyelinating plaques of the cervical cord and cervical medullary junction. No eloy dence of disease progression. 3. No significant cord atrophy. 4. Stable mild central canal stenosis C5-C6 due to disc osteophyte protrusion similar to previous
--- NOTE | 2024-01-17 09:30 | MR_ITS ---
WS: [id number] MRI HEAD WITH CONTRAST TECHNIQUE: Sagittal T1, T2 axial, T2 axial FLAIR, axial susceptibility weighted imaging, axial diffus ion weighted images, and coronal T2 images were obtained. Pre and post-T1 axial and post T1 coronal i mages. ADC and FSPGR images. CLINICAL INFORMATION: G37.9 - Demyelinating disease of central nervous system, ... COMPARISON: MRI 05/08/2021 FINDINGS: No evidence of restricted diffusion to suggest acute ischemia. Ventricular system and basal cistern s are patent. Moderate patchy supratentorial white matter changes with pericallosal lesions consisten t with history of demyelinating disease. The number and distribution of lesions is not significantly changed compared to previous. No evidence of disease progression. No significant corpus callosal atrophy. No enhancing lesions to i ndicate active disease. Mild T1 hypointense lesion load. No hemosiderin on susceptibly weighted image s. Mild parenchymal volume loss. Normal optic chiasm and pituitary infundibulum. Normal cavernous sin uses. Normal rectus muscles. Normal dural venous sinuses. Mild symmetric atrophy temporal lobes and hippocampal formations. Paranasal sinuses are well aerated. Mastoid air cells are well aerated. IMPRESSION: 1. No significant changes compared to previous. 2. Moderate patchy supratentorial white matter changes consistent with history of demyelinating dise ase. 3. No evidence of disease progression. 4. No enhancing lesions to indicate active disease. 5. Mild parenchymal volume loss. No significant atrophy of the corpus callosum. 6. Mild T1 hypointense lesion load.
== END 2024-01-17 08:05 | disposition home or self-care (01) ==
LOC: RAD 08:06
PROVIDERS: PCP Nurse Practitioner Family; Visit Provider Psychiatry & Neurology Neurology
DX: G37.9 Demyelinating disease of central nervous system, unspecified (principal); R68.89 Other general symptoms and signs; G62.9 Polyneuropathy, unspecified; R26.81 Unsteadiness on feet; G35 Multiple sclerosis; I10 Essential (primary) hypertension
CPT/HCPCS: 70553; 72141; A9577

== ENCOUNTER → 2024-01-30 14:35 | Outpatient (BNVA) | payer MEDICARE, OTHER, SELFPAY | PROVIDERS: PCP Nurse Practitioner Family; Visit Provider Psychiatry & Neurology Neurology | DX: G37.9 Demyelinating disease of central nervous system, unspecified (principal) | CPT/HCPCS: 99212 ==

== ENCOUNTER → 2024-01-31 08:35 | Outpatient (BNVA) | payer MEDICARE, OTHER, SELFPAY | PROVIDERS: PCP Nurse Practitioner Family; Referring Provider Nurse Practitioner Family; Visit Provider Surgery | DX: N83.209 Unspecified ovarian cyst, unspecified side (principal); K62.89 Other specified diseases of anus and rectum; R93.89 Abnormal findings on diagnostic imaging of other specified body structures | CPT/HCPCS: 99204 ==

== ENCOUNTER 2024-02-02 11:38 | Day surgery (SDC) | payer MEDICARE, OTHER, SELFPAY ==
--- NOTE | 2024-02-02 10:56 | W.PM.OPSUD ---
Surgery/Procedure H&P Update DATE OF PROCEDURE: February 02, 2024 DATE H&P PERFORMED: 01/31/24 H&P UPDATE INFORMATION: I have reviewed H&P completed within last 30 days, I have examined patient prior to procedure, No changes to prior documentation and H&P is in [facility] [place] on date indicated PLANNED PROCEDURE: Operation Date: 02/02/24 13:00 Proposed Procedures p Sigmoidoscopy(Not Applicable) - Chema Leyva MD
[2024-02-02 11:44] VITALS: BP 134/85; PULSE 80; RESP 18; TEMP 36.4; O2SAT 98
--- NOTE | 2024-02-02 12:07 | P.ANESASSM_ITS ---
Pre-Anesthetic Assessment Height/Weight: Height 1.68 m Weight 73.482 kg Temp Pulse Resp BP Pulse Ox O2 Del Method 97.5 F L 80 18 134/85 98 Room Air 02/02/24 11:44 02/02/24 11:44 02/02/24 11:44 02/02/24 11:44 02/02/24 11:44 02/02/24 11:44 Operation Date: 02/02/24 13:00 Proposed Procedures p Sigmoidoscopy(Not Applicable) - Chema Leyva MD Was Beta Stuart taken within 24 hours: Yes Was Clonidine taken within 24 hours: N/A Last intake: Intake Last Liquid Date 02/02/24 Last Liquid Time 06:00 Last Solid Date 01/31/24 Last Solid Time 19:00 Last Intake: 22:00 Social No alcohol and No tobacco Exam alert, oriented x 3, clear to auscultation bilaterally and regular rate & rhythm Airway Submandibular: within normal limits Cervical ROM: within normal limits Mallampati: Class II History/ROS No significant history except as noted Pulmonary None reported CV/HEM Hypertension None reported Hepatic None reported GI None reported Metabolic None reported Musc/skel None reported Neuropsych None reported Anesthetic Plan ASA status: 2 Anesthesia: MAC Risk of > 500 ml blood loss (7ml/kg in children): Yes, adequate IV access and fluids planned Medications/Allergies Home Medications Medication Instructions Recorded Confirmed Last Taken Type aspirin 81 mg tablet,delayed 81 mg PO DAILY 07/30/20 02/01/24 01/30/24 History release (Adult Low Dose Aspirin) multivitamin,[id number] 1 tab PO DAILY 07/30/20 02/01/24 01/31/24 History (Complete Multivitamin tablet) citalopram 40 mg tablet 40 mg PO DAILY #90 tabs 04/28/23 02/01/24 02/01/24 Rx losartan 25 mg tablet 25 mg PO DAILY #90 tabs 04/28/23 02/01/24 02/01/24 Rx [place] 3 500 mg PO DAILY 08/04/23 02/01/24 01/30/24 History metoprolol tartrate 25 mg tablet 12.5 mg (1/2 x 25 mg) PO BID #90 11/03/23 02/01/24 02/02/24 Rx tabs cholecalciferol (vitamin D3) 50 50 mcg PO DAILY 02/01/24 02/01/24 01/31/24 History mcg (2,000 unit) capsule (Vitamin D3) hydrochlorothiazide 25 mg tablet 25 mg PO DAILY 02/01/24 02/01/24 02/01/24 History potassium chloride 10 mEq 10 meq PO DAILY 02/01/24 02/01/24 01/31/24 History capsule,extended release pravastatin 80 mg tablet 80 mg PO DAILY 02/01/24 02/01/24 02/01/24 History Allergies Allergy/AdvReac Type Severity Reaction Status Date / Time furosemide [From Lasix] Allergy Unknown Verified 01/31/24 08:54 lisinopril Allergy ADR-Cough Verified 01/31/24 08:54 [facility] Anesthesia Medical History Multiple sclerosis Vision changes Unsteady gait Mixed stress and urge urinary incontinence Dyspareunia in female Anxiety and depression Hypertension Hyperlipidemia Surgical History History of excision of mass Anal History of cataract surgery August and September 2019 Hx of colonoscopy (~2011) Hx of hysterectomy (~1986) Family History Brother Diabetes Family/Other Hypertension Mother Stroke CAD (coronary artery disease) Grandfather Cancer colon Father CAD (coronary artery disease) Social History Smoking and tobacco/nicotine status: never used tobacco/nicotine Second hand smoke exposure: No Alcohol intake: never Substance/Drug Use: never Adopted: No Caregiver/support person: Yes Lives independently: Yes Household members: spouse Marital status: service: No Current occupational status: employed Current occupation: [employer] Current gender identity: Female Special rebecca needs: No Agree to transfusion: Yes Data Anesthesia Cardiac Studies: Echocardiogram 08/18/23 Cardiac Event Monitor 08/11/23
[2024-02-02] MEDS: sodium chloride 0.9% 1,000 ML 30 ML IV (12:12)
[2024-02-02 13:25] VITALS: BP 90/44; PULSE 69; RESP 14; TEMP 36.1; O2SAT 97
[2024-02-02 13:33] VITALS: BP 107/54; PULSE 73; RESP 16; O2SAT 96
--- NOTE | 2024-02-02 13:55 | ANE.PACU2 ---
Inpatient post-anesthesia follow up: Airway intact: Yes Vital signs: Temperature 97.0 F Pulse Rate 73 Respiratory Rate 16 Blood Pressure 107/54 Pulse Oximetry 96 Oxygen Delivery Me thod Room Air Oxygen Flow Rate Fraction of Inspir ed Oxygen Hydration adequate: Yes Nausea and vomiting: No Pain level: 1 Mental status: Baseline
== END 2024-02-02 13:55 | disposition home or self-care (01) ==
PROVIDERS: PCP Nurse Practitioner Family; Visit Provider Surgery
PROC: 0DJD8ZZ Inspection of Lower Intestinal Tract, Via Natural or Artificial Opening Endoscopic (ICD-10-PCS; CPT 45330; principal; 2024-02-02 13:00)
DX: R93.89 Abnormal findings on diagnostic imaging of other specified body structures (principal); K62.89 Other specified diseases of anus and rectum; Z79.82 Long term (current) use of aspirin; G35 Multiple sclerosis; I10 Essential (primary) hypertension; E78.5 Hyperlipidemia, unspecified
CPT/HCPCS: 45330; J2704; J7030

== ENCOUNTER 2024-02-13 14:13 | Outpatient (CLI) | payer MEDICARE, OTHER, SELFPAY ==
--- NOTE | 2024-02-13 14:30 | MR_ITS ---
WS: [email or web address] INDICATION: Perirectal mass TECHNIQUE: MRI of the pelvis without gadolinium enhancement coronal T1 sagittal T2 axial T2 axial T1 coronal T2 axial 3D T1 FINDINGS: Again seen is the partially calcified mass in the deep pelvis abutting the rectum. There ap pears to be a small fat plane between the rectum and the calcified lobulated mass which measures appr oximately 4.6 x 2.5 cm. This is indeterminate but has a nonaggressive appearance. No surrounding angeles ration or inflammatory changes. Suspected possible connection to the inferior aspect of the LEFT ovar y. Differential considerations described below. RIGHT ovarian cyst measuring 7.6 x 7.1 cm with relatively simple appearance. Prior hysterectomy. Smal l LEFT ovary is visualized. No other acute findings. IMPRESSION: 1. Again seen is the lobulated densely calcified mass in the deep LEFT pelvis. This appears separate from the rectum on today's study with intervening fat plane. There may be a connection to the LEFT o vary. Differential considerations include dermoid, chronic endometrioma, chronic hematoma with calcif ication. Prior fat necrosis or trauma with calcification. Retained surgical sponge considered less li eligio 2. Stable previously described RIGHT adnexal cyst has a relatively simple appearance measuring 7.6 w ith 7.1 cm. 3. Prior hysterectomy.
== END 2024-02-13 14:14 | disposition home or self-care (01) ==
LOC: RAD 14:14
PROVIDERS: PCP Nurse Practitioner Family; Visit Provider Surgery
DX: K62.89 Other specified diseases of anus and rectum (principal); N83.291 Other ovarian cyst, right side
CPT/HCPCS: 72195

== ENCOUNTER → 2024-02-15 08:41 | Outpatient (BNVA) | payer MEDICARE, OTHER, SELFPAY | PROVIDERS: PCP Nurse Practitioner Family; Visit Provider Surgery | DX: Z09 Encounter for follow-up examination after completed treatment for conditions other than malignant neoplasm (principal); R10.32 Left lower quadrant pain; R19.00 Intra-abdominal and pelvic swelling, mass and lump, unspecified site | CPT/HCPCS: 99214 ==

== ENCOUNTER → 2024-02-27 10:00 | Outpatient (BNVA) | payer MEDICARE, OTHER, SELFPAY | PROVIDERS: PCP Nurse Practitioner Family; Visit Provider Family Medicine | DX: N39.0 Urinary tract infection, site not specified (principal) | CPT/HCPCS: 81003; 87077; 87086; 87184 ==

== ENCOUNTER → 2024-05-29 08:53 | Outpatient (BNVA) | payer MEDICARE, OTHER, SELFPAY | PROVIDERS: PCP Nurse Practitioner Family; Visit Provider Nurse Practitioner Family | DX: E55.9 Vitamin D deficiency, unspecified (principal); Z79.899 Other long term (current) drug therapy | CPT/HCPCS: 80053; 80061; 82306; 85025 ==

== ENCOUNTER → 2024-08-09 13:01 | Outpatient (BNVA) | payer MEDICARE, OTHER, SELFPAY | PROVIDERS: PCP Nurse Practitioner Family; Visit Provider Internal Medicine | DX: I10 Essential (primary) hypertension (principal); E78.5 Hyperlipidemia, unspecified; R00.2 Palpitations | CPT/HCPCS: 99213 ==

== ENCOUNTER → 2025-08-08 14:28 | Outpatient (BNVA) | payer MEDICARE, OTHER, SELFPAY | PROVIDERS: PCP Nurse Practitioner Family; Visit Provider Internal Medicine | DX: I10 Essential (primary) hypertension (principal); R00.2 Palpitations | CPT/HCPCS: 99213 ==

== ENCOUNTER → 2025-09-18 14:15 | Outpatient (BNVA) | payer MEDICARE, OTHER, SELFPAY | PROVIDERS: PCP Nurse Practitioner Family; Visit Provider Nurse Practitioner Family | DX: I10 Essential (primary) hypertension (principal); E55.9 Vitamin D deficiency, unspecified; F41.9 Anxiety disorder, unspecified; F32.9 Major depressive disorder, single episode, unspecified | CPT/HCPCS: 80053; 80061; 82306; 83735; 84439; 84443; 85025 ==

== ENCOUNTER 2025-09-25 14:36 | Outpatient (CLI) | payer MEDICARE, OTHER, SELFPAY ==
--- NOTE | 2025-09-25 15:00 | MM_ITS ---
WS: [email or web address] BILATERAL 3D TOMOSYNTHESIS DIGITAL SCREENING MAMMOGRAPHY WITH CAD CLINICAL INFORMATION: Z12.39 - Encounter for other screening for malignant neop... HISTORY: Screening mammogram. No current complaints. COMPARISON: 2022 TECHNIQUE: Bilateral CC and MLO views. FINDINGS: The breasts are composed of heterogeneous fibroglandular density tissue, which can limit the detection of small underlying mass lesions. No suspicious mass, asymmetry, calcifications, or architectural distortion. No evidence of malignancy. A few incidental punctate calcifications. Vascular calcification. MM/MM [facility] tomosynthesis [id number] IMPRESSION: DENSITY: The breasts are heterogeneously dense, which may obscure small masses. BI-RADS: 2 - Benign FOLLOW UP: 1 Year Follow-up Recommend return to annual screening mammography.
--- NOTE | 2025-09-25 15:30 | XR_ITS ---
WS: [email or web address] SCREENING DEXA SCAN Resale Therapy CLINICAL INFORMATION: Z78.0 - Asymptomatic menopausal state COMPARISON: None. FINDINGS: The L1-L4 bone mineral density measures 1.140 g/cm2. This corresponds to a T score score of -0.3 and Z score of 1.0. Left femoral neck bone mineral density measures 0.993 g/cm2. This corresponds to a T score of -0.1 and Z score of 1.0. Right femoral neck bone mineral density measures 0.976 g/cm2. This corresponds to a T score -0.2of and Z score of 0.9. Mean femoral neck bone mineral density measures 0.985 g/cm2. This corresponds to a T score of -0.2 and Z score of 1.0. XR/XR DEXA axial skeleton* [id number] IMPRESSION: Normal bone mineralization. Patient's FRAX calculated 10 year probability for major osteoporotic fracture i s 14.6% and osteoporotic hip fracture is 1.5%.
== END 2025-09-25 14:37 | disposition home or self-care (01) ==
LOC: RAD 14:38
PROVIDERS: PCP Nurse Practitioner Family; Visit Provider Nurse Practitioner Family
DX: Z12.31 Encounter for screening mammogram for malignant neoplasm of breast (principal); Z13.820 Encounter for screening for osteoporosis; Z78.0 Asymptomatic menopausal state; R92.323 Mammographic fibroglandular density, bilateral breasts; R92.1 Mammographic calcification found on diagnostic imaging of breast
CPT/HCPCS: 77063; 77067; 77080